=== PATIENT | female | born 1990 | race Hispanic/Latino ===

== ENCOUNTER 2016-07-08 10:53 | Emergency (ER) | payer MEDICAID ==
[2016-07-08 12:04] LABS: Bilirubin,Urine NEG (Negative); Blood,Urine NEG (Negative); Ketones,Urine NEG (Negative); Leukocyte Esterase,Urine NEG (Negative); Mucus,Urine FEW /HPF; Nitrite,Urine NEG (Negative); Protein,Urine <15 mg/dL mg/dL (Negative); Urobilinogen,Urine < 2.0 mg/dL (<2.0); WBC,Urine < 1.0 /HPF (0.0-6.0)
[2016-07-08 12:12] LABS: Basophils % (Auto) 0.2 % (0.0-1.8); Eosinophils % (Auto) 0.4 % (0.0-4.3); Hematocrit 43.9 % (30.3-42.9); Hemoglobin 14.7 gm/dl (10.1-14.3); Mean Corpuscular HGB Conc 34 % (30-34); Mean Corpuscular Hemoglobin 30 pg (28-32); Mean Corpuscular Volume 89 fl (79-97); Platelet Count 201 K/mm3 (140-440); Red Blood Count 4.93 M/mm3 (3.65-5.03); Red Cell Distribution Width 13.3 % (13.2-15.2); White Blood Count 9.8 K/mm3 (4.5-11.0)
[2016-07-08 12:17] LABS: Alanine Aminotransferase 18 units/L (7-56); Albumin 4.6 g/dL (3.9-5); Albumin/Globulin Ratio 2.2 %; Alkaline Phosphatase 68 units/L (35-129); Anion Gap 18 mmol/L; BUN/Creatinine Ratio 12.85; Blood Urea Nitrogen 9 mg/dL (7-17); Calcium 9.2 mg/dL (8.4-10.2); Carbon Dioxide 25 mmol/L (22-30); Chloride 97.9 mmol/L (98-107); Glucose 106 mg/dL (65-100); Lipase 16 units/L (13-60); Potassium 4.4 mmol/L (3.6-5.0); Sodium 136 mmol/L (137-145); Total Protein 6.7 g/dL (6.3-8.2)
[2016-07-08] MEDS ORDERED: ZOFRAN ODT PO ONE (16:20)
[2016-07-08] MEDS ORDERED: PERCOCET 5/325 PO ONE (16:20)
--- NOTE | 2016-07-08 17:47 | Cat Scan Report ---
FINAL REPORT EXAM: CT ABDOMEN PELVIS WO CON HISTORY: abdominal pain TECHNIQUE: CT images obtained through the Abdomen and Pelvis without contrast. Transaxial,coronal and sagittal reformats are provided. PRIORS: None. FINDINGS: Imaged intrathoracic contents are unremarkable. Kidneys are normal in size, axis and position. No hydronephrosis or nephrolithiasis. The ureters are normal in course and caliber. No stones are seen within the urinary bladder. The liver, gallbladder, pancreas, spleen, and adrenal glands demonstrate a normal noncontrast appearance. Hollow enteric organs are normal in course and caliber. Appendix is normal. No intra-abdominal free air/fluid or lymphadenopathy. Aorta is normal in course and caliber. Anteverted uterus. No free fluid in the pelvis a predominantly fatty mass measuring 5.7 x 7.2 x 4.4 cm is present posterior to the uterus and most likely arising from the left ovary. Bilateral tubal ligation clips are present. Superficial soft tissues are unremarkable. No acute or aggressive appearing skeletal findings. IMPRESSION: No acute intra-abdominal process. 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 Pelvic ultrasound is suggested to assess for ovarian torsion in the setting of lower abdominal pain. Dr. Agarwal discussed findings with TRACEY Madden at 1640CST following the examination.
[2016-07-08] MEDS ORDERED: ZOFRAN IM ONE (17:56)
[2016-07-08] MEDS ORDERED: DILAUDID IM ONE (17:56)
--- NOTE | 2016-07-08 19:28 | Ultrasound Report ---
FINAL REPORT EXAM: US PELVIC COMPLETE HISTORY: s/p ct with questioning Lt ovarian torsion . Left lower quadrant pain. Fatty mass present in the cul-de-sac to the left of midline on CT. TECHNIQUE: Ultrasound of the pelvis using transabdominal and transvaginal imaging PRIORS: CT a/P 07/08/2016 FINDINGS: Uterus: Uterus is enlarged in size and normal and homogeneous in echogenicity without focal fibroid formation. The uterus measures 11.4 x 5.2 x 6.0 cm in size. Endometrial stripe: Normal and uniform in thickness measuring 10.6 mm. Ovaries: Both ovaries appear normal in size and echogenicity. The right ovary measures 3.0 x 1.8 x 2.1 cm and the left ovary measures 3.1 x 1.7 x 2.5 cm in size. The right ovary demonstrates normal arterial and venous blood flow. The left ovary blood flow is difficult to visualize transvaginally due to its close proximity to a mass mentioned below. Small amounts of color flow are seen associated with the left ovary. Other: In the cul-de-sac to the left of midline, there is a heterogeneous echogenic multilobulated mass measuring at least 5.9 cm in size. This corresponds to the fatty complex mass seen on CT. IMPRESSION: 1. Large heterogeneous echogenic multilobulated mass in the cul-de-sac to the left of midline. This corresponds to the fatty mass seen on CT. Findings are most likely consistent with an ovarian dermoid/ teratoma 2. The left ovary has a normal appearance and size. However, blood flow is difficult to visualize due to its proximity to the mass mentioned above. Small amounts of color flow are associated with the left ovary. 3. Normal appearing right ovary with no evidence for torsion on the right. 4. Uterus is enlarged but otherwise unremarkable.
--- NOTE | 2016-07-08 19:56 | Emergency Department Report ---
Entered by ANA VICTORIA, acting as scribe for RANJANA MILLIGAN PA. ED Abdominal Pain HPI - General Chief Complaint: Abdominal Pain Stated Complaint: LOWER ABD PAIN/BACK PAIN/NUMBNESS Source: patient Mode of arrival: Ambulatory Limitations: No Limitations - History of Present Illness Initial Comments: 26 year old female with a PMHx of HTN with previous presents to the ED c/o abdominal pain that began 2 days ago. Rates pain an 8/10 in severity, which radiates to her lower back. Associated symptom includes chills, but she denies nausea, vomiting, dysuria, vaginal discharge, vaginal bleeding, urgency, frequency, numbness, and tingling. LMP 12/24/2015. Denies any injury and Hx of kidney stones. NKDA. ZEPEDA Complaint: abdominal pain Onset/Timin -: days(s), Last night Location: RUQ, LLQ Radiation: none, back (lower back) Migration to: no migration Severity: severe Severity scale (0 -10): 8 Quality: aching Consistency: constant Improves With: nothing Worsens With: nothing Associated Symptoms: denies other symptoms, chills. denies: nausea, vomiting, diarrhea, fever, constipation, dysuria, hematemesis, hematochezia, melena, hematuria, anorexia, syncope, other (vaginal bleeding and vaginal discharge, but reports low back pain) Treatments Prior to Arrival: other (none) - Related Data LMP Date: 12/24/15 LMP (females 10-50): other (6 months) Previous Rx's Medication Instructions Recorded Last Taken Type Nitrofurantoin [place]/M-Cryst 100 mg PO Q12HR #6 capsule 10/02/14 Unknown Rx [Macrobid CAP] Phenazopyridine [Pyridium] 200 mg PO TID #6 tablet 10/02/14 Unknown Rx HYDROcodone/APAP 5-325 [[place] 1 each PO Q6HR PRN #16 tablet 07/08/16 Unknown Rx 5/325] Naproxen [Naprosyn] 500 mg PO BID PRN #16 tablet 07/08/16 Unknown Rx Promethazine [Phenergan TAB] 25 mg PO Q6HR PRN #20 tab 07/08/16 Unknown Rx Allergies Allergy/AdvReac Type Severity Reaction Status Date / Time No Known Allergies Allergy Verified 10/02/14 11:20 ED Review of Systems Comment: All other systems reviewed and negative Constitutional: chills. denies: fever, weakness, other (tingling) ENT: denies: throat pain Respiratory: no symptoms reported Cardiovascular: denies: chest pain, palpitations, edema, syncope Gastrointestinal: abdominal pain. denies: nausea, vomiting, diarrhea, constipation, hematemesis, hematochezia Genitourinary: denies: urgency, dysuria, frequency, hematuria, discharge Musculoskeletal: back pain (lower back pain). denies: arthralgia Skin: denies: rash, pruritus Neurological: denies: headache, numbness ED Past Medical Hx - Past Medical History Previous Medical History?: Yes Hx Hypertension: Yes (w/ preg) - Surgical History Past Surgical History?: Yes Additional Surgical History: 3 x c-sections - Family History Family history: hypertension - Social History Smoking Status: Never Smoker Substance Use Type: Non Opiate Pain - Medications Home Medications: Home Medications Medication Instructions Recorded Confirmed Last Taken Type Nitrofurantoin [place]/M-Cryst 100 mg PO Q12HR #6 capsule 10/02/14 Unknown Rx [Macrobid CAP] Phenazopyridine [Pyridium] 200 mg PO TID #6 tablet 10/02/14 Unknown Rx HYDROcodone/APAP 5-325 [[place] 1 each PO Q6HR PRN #16 tablet 07/08/16 Unknown Rx 5/325] Naproxen [Naprosyn] 500 mg PO BID PRN #16 tablet 07/08/16 Unknown Rx Promethazine [Phenergan TAB] 25 mg PO Q6HR PRN #20 tab 07/08/16 Unknown Rx ED Physical Exam - General Limitations: No Limitations General appearance: alert, in no apparent distress - Head Head exam: Present: atraumatic, normocephalic - Eye Eye exam: Present: normal appearance, EOMI Pupils: Present: normal accommodation - ENT ENT exam: Present: normal exam, normal orophraynx, mucous membranes moist - Neck Neck exam: Present: normal inspection, full ROM. Absent: tenderness, lymphadenopathy - Respiratory Respiratory exam: Present: normal lung sounds bilaterally. Absent: respiratory distress, wheezes, rales, rhonchi, chest wall tenderness - Cardiovascular Cardiovascular Exam: Present: regular rate, normal rhythm. Absent: systolic murmur, diastolic murmur, rubs, gallop - GI/Abdominal GI/Abdominal exam: Present: soft, tenderness (bilateral lower abdominal), guarding, normal bowel sounds. Absent: distended, rebound, rigid - External exam: Present: normal external exam. Absent: erythema, swelling, lesions, lacerations, ecchymosis, bleeding - Extremities Exam Extremities exam: Present: normal inspection, full ROM - Back Exam Back exam: Present: normal inspection, full ROM. Absent: CVA tenderness (R), CVA tenderness (L) - Neurological Exam Neurological exam: Present: alert, oriented X3 - Psychiatric Psychiatric exam: Present: normal affect, normal mood - Skin Skin exam: Present: warm, dry, intact. Absent: rash ED Course Vital Signs 07/08/16 11:14 Temperature 98.3 F Pulse Rate 78 Respiratory 20 Rate Blood Pressure 137/95 O2 Sat by Pulse 98 Oximetry - Reevaluation(s) Reevaluation #1: 07/08/16 17:45 She received Percocet 5/325 mg 2 tablets along with Zofran 4 mg ODT in emergency room. She reports that she still having abdominal pain. Abdominal exam remained unchanged. I spoke with radiologist who reports that patient with possible teratoma to left ovary on CT scan.. Requesting patient to have a pelvic ultrasound. 07/08/16 18:48 Reevaluation #2: 07/08/16 18:48 Awaiting results of pelvic ultrasound. Received Dilaudid 1 mg IM and Zofran 4 mg IM for pain. Her pain is better. Abdominal exam with minimal pain Reevaluation #3: 07/08/16 19:40 Up and reevaluation of abdominal exam, patient states pain is better and abdomen with mild tenderness on left side lower quadrant. ED Medical Decision Making - Lab Data Result diagrams: 07/08/16 11:41 07/08/16 11:41 Lab Results 07/08/16 07/08/16 07/08/16 Range/Units 11:36 11:41 11:41 WBC 9.8 (4.5-11.0) K/mm3 RBC 4.93 (3.65-5.03) M/mm3 Hgb 14.7 H (10.1-14.3) gm/dl Hct 43.9 H (30.3-42.9) % MCV 89 (79-97) fl MCH 30 (28-32) pg MCHC 34 (30-34) % RDW 13.3 (13.2-15.2) % Plt Count 201 (140-440) K/mm3 Lymph % (Auto) 14.7 (13.4-35.0) % [place] % (Auto) 5.2 (0.0-7.3) % Eos % (Auto) 0.4 (0.0-4.3) % Baso % (Auto) 0.2 (0.0-1.8) % Lymph # 1.4 (1.2-5.4) K/mm3 [place] # 0.5 (0.0-0.8) K/mm3 Eos # 0.0 (0.0-0.4) K/mm3 Baso # 0.0 (0.0-0.1) K/mm3 Seg Neutrophils % 79.5 H (40.0-70.0) % Seg Neutrophils # 7.8 H (1.8-7.7) K/mm3 Sodium 136 L (137-145) mmol/L Potassium 4.4 (3.6-5.0) mmol/L Chloride 97.9 L (98-107) mmol/L Carbon Dioxide 25 (22-30) mmol/L Anion Gap 18 mmol/L BUN 9 (7-17) mg/dL Creatinine 0.7 (0.7-1.2) mg/dL Estimated GFR > 60 ml/min BUN/Creatinine Ratio 12.85 % Glucose 106 H (65-100) mg/dL Calcium 9.2 (8.4-10.2) mg/dL Total Bilirubin 0.60 (0.1-1.2) mg/dL AST 19 (5-40) units/L ALT 18 (7-56) units/L Alkaline Phosphatase 68 (35-129) units/L Total Protein 6.7 (6.3-8.2) g/dL Albumin 4.6 (3.9-5) g/dL Albumin/Globulin Ratio 2.2 % Lipase 16 (13-60) units/L Urine Color Yellow (Yellow) Urine Turbidity Clear (Clear) Urine pH 8.0 H (5.0-7.0) Ur Specific [place] 1.016 (1.003-1.030) Urine Protein <15 mg/dl (Negative) mg/dL Urine Glucose (UA) Neg (Negative) mg/dL Urine Ketones Neg (Negative) mg/dL Urine Blood Neg (Negative) Urine Nitrite Neg (Negative) Urine Bilirubin Neg (Negative) Urine Urobilinogen < 2.0 (<2.0) mg/dL Ur Leukocyte Esterase Neg (Negative) Urine WBC (Auto) < 1.0 (0.0-6.0) /HPF Urine RBC (Auto) 2.0 (0.0-6.0) /HPF U Epithel Cells (Auto) 10.0 (0-13.0) /HPF Urine Mucus Few /HPF Urine HCG, Qual Negative (Negative) Wet prep revealed bacterial vaginosis, no trichomonas and no yeast. Gonorrhea and chlamydia tests pending. - Radiology Data Radiology results: report reviewed CT scan of the abdomen and pelvis without contrast revealed patient with possible dermoid teratoma to left ovary. Radiologist recommended patient to have pelvic ultrasound. Ultrasound reveals patient with large heterogeneous echogenic multilobulated mass in the cul-de-sac to the left of midline. This corresponds to the fatty mass seen in CT scan. Findings are most likely consistent with an ovarian dermoid/teratoma. The left ovary has normal appearance and size. However blood was difficult to visualize due to its proximity to the mass. Moderate amount of colorless are associated with left ovary. Apparently right ovary with no evidence for torsion on the right. Uterus is enlarged but otherwise unremarkable. - Medical Decision Making ED course: Patient with diagnosis of ovarian teratoma/dermoid, pelvic pain, nausea. Patient was given Percocet 5/325 2 tablets in emergency room along with Zofran 4 mg ODT. This did not adequately relieve her pain so she was given Dilaudid 1 mg IM with Zofran 4 mg IM which relieved her pain. Results of CT scan and ultrasound with patient. I also discussed case with Dr. Gagnon and he agrees with follow-up. [employer] and pain control. He is advised to call her [employer] office on Sunday to schedule an appointment. Patient instructed to return to emergency room if having increasing abdominal pain does not control the pain medication. Then the discharge instruction discharged home with family no acute distress with prescription for [place], Naprosyn and Phenergan. She is able to tolerate oral liquids in emergency room. ED Disposition Clinical Impression: Teratoma of left ovary, Pelvic pain, Nausea alone Disposition: DISCHARGED TO HOME OR SELFCARE Is pt being admited?: No Does the pt Need Aspirin: No Condition: Stable Instructions: Abdominal Pain (ED), Ovarian Cyst (ED) Additional Instructions: You have massively left ovary called a Teratoma/Dermoid cyst. He will need to follow up with your [employer] doctor and/or [employer] [facility] that we refer for possible surgical removal. Take Eland to manage her pain that is to not drive or operate heavy machinery while on this medication. If you have increasing pain in her abdomen that is not controlled with pain medication please return to emergency room [facility]. Please read Handout given on ovarian tumors. Prescriptions: HYDROcodone/APAP 5-325 [[place] 5/325] 1 each PO Q6HR PRN #16 tablet PRN Reason: Pain Naproxen [Naprosyn] 500 mg PO BID PRN #16 tablet PRN Reason: Pain Promethazine [Phenergan TAB] 25 mg PO Q6HR PRN #20 tab PRN Reason: Nausea Referrals: PRIMARY CARE, [Primary Care Provider] - 2-3 Days RAGHU CASTILLO MD [Staff Physician] - 07/10/16 Forms: Accompanied Note, Work/School Release Form(ED) This documentation as recorded by the JULIEN kelly JASMINE,accurately reflects the service I personally performed and the decisions made by ,RANJANA MILLIGAN PA.
[2016-07-08 19:58] VITALS: BP 120/68
== END 2016-07-08 20:14 | disposition home or self-care (01) ==
LOC: ED 10:53
DX: D27.1 Benign neoplasm of left ovary (principal); R10.2 Pelvic and perineal pain; R11.0 Nausea
CPT/HCPCS: 36415; 74176; 76830; 76856; 80053; 81001; 81025; 83690; 85025; 87210; 87591; 96372; 99284; J1170; J2405; Q0162

== ENCOUNTER 2016-07-19 21:02 | Emergency (ER) | payer SELFPAY | END 2016-07-19 23:04 | disposition left against medical advice (07) | LOC: ED 21:02 | DX: R10.9 Unspecified abdominal pain (principal); R11.11 Vomiting without nausea; Z53.21 Procedure and treatment not carried out due to patient leaving prior to being seen by health care provider ==

== ENCOUNTER 2017-04-20 11:03 | Emergency (ER) | payer SELFPAY ==
[2017-04-20 12:49] VITALS: BP 121/77
== END 2017-04-20 19:43 | disposition left against medical advice (07) ==
LOC: ED 11:03
DX: R10.9 Unspecified abdominal pain (principal); R11.10 Vomiting, unspecified; Z53.21 Procedure and treatment not carried out due to patient leaving prior to being seen by health care provider